=== PATIENT | female | born 1990 | race Caucasian/White ===

== ENCOUNTER 2019-04-13 00:59 | Observation (INO) ==
[2019-04-13] MEDS ORDERED: G.I. COCKTAIL PO ONE (01:32)
[2019-04-13 02:00] LABS: URINE SOURCE CLEAN CATCH
[2019-04-13 02:08] LABS: BASO# 0.01 X1000 (0.0-0.2); BASO% 0.1 % (0.0-0.8); EOS# 0.16 X1000 (0.0-0.7); EOS% 2.1 % (0.0-10.0); HEMATOCRIT 39.8 % (37.0-47.0); HEMOGLOBIN 12.4 g/dL (12.0-16.0); IMM GRAN# 0.02 X1000 (0.0-0.04); IMM GRAN% 0.3 % (0.0-0.5); LYMPH# 2.74 X1000 (1.2-3.4); LYMPH% 35.4 % (20.5-51.1); MCH 25.4 PG (27-31); MCHC 31.2 g/dL (33-37); MCV 81.6 FL (81-99); MONO# 0.82 X1000 (0.11-0.59); MONO% 10.6 % (1.7-9.3); MPV 10.7 FL (7.4-10.4); NEUT% 51.5 % (42.2-75.2); PLT 321 X1000 (130-400); RBC 4.88 XMIL (4.2-5.4); RDW 14.8 % (11.5-14.5); WBC 7.75 X1000 (4.8-10.8)
[2019-04-13 02:14] LABS: BILIRUBIN URINE NEGATIVE (NEGATIVE); BLOOD URINE NEGATIVE (NEGATIVE); COLOR YELLOW; GLUCOSE URINE NEGATIVE (NEGATIVE); KETONE URINE NEGATIVE (NEGATIVE); LEUKOCYTES URINE NEGATIVE (NEGATIVE); NITRITE URINE NEGATIVE (NEGATIVE); PROTEIN URINE TRACE mg/dL (NEGATIVE); SP GRAVITY URINE 1.032; TURBIDITY URINE CLEAR (CLEAR); UROBILINOGEN URINE NORMAL (NORMAL)
[2019-04-13 02:15] LABS: UR EPITHELIAL CELLS <10 /HPF (<10); URINE BACTERIA 1+ /HPF; URINE RBC <10 /HPF (<10); URINE WBC <10 /HPF (<10)
[2019-04-13 02:31] LABS: AGAP 12; ALBUMIN 4.7 g/dL (3.5-5.0); ALKALINE PHOSPHATASE 95 U/L (32-104); AMYLASE 54 U/L (20-200); BUN 16 mg/dL (8-22); CALCIUM 8.7 mg/dL (8.8-10.2); CHLORIDE 103 mmol/L (98-107); COSMO 280; CREATININE 0.8 mg/dL (0.5-0.9); ESTIMATED GFR > 60; GLUCOSE 117 mg/dL (70-104); GOT 19 U/L (10-30); GPT 31 U/L (10-36); LIPASE 30 U/L (13-60); POTASSIUM 3.6 mmol/L (3.5-5.1); SODIUM 139 mmol/L (136-145); TCO2 24 mmol/L (25-35); TOTAL PROTEIN 7.9 g/dL (6.3-8.3)
--- NOTE | 2019-04-13 03:59 | PROVIDER DOCUMENTATION ---
This chart was entered by Giselle Restrepo Scribe, acting as scribe for Stuart Chandra MD. HPI-Abdominal Pain/GI Problem - General Chief Complaint: Abdominal Pain Stated Complaint: ABD PAIN Time Seen by Provider: 04/13/19 01:24 Source: patient Allergies/Adverse Reactions: Patient Allergies Allergy/AdvReac Type Severity Reaction Status Date / Time No Known Allergies Allergy Verified 04/13/19 01:12 Home Medications: Home Medication List Medication Instructions Recorded Confirmed Last Taken Type NK [No Home Medications] 04/13/19 04/13/19 Unknown History - History of Present Illness-ABD Nature of Presenting Problems: Pt is a 28 yowf presenting to the ED stating she has a dull pain in her abdomen straight thru to her back. Pt states that pain started 2 days ago, occurs only at night, heat does not relieve and GasEx does not resolve the pain. Pt has not had v/d but pain causes nausea. Pt appeared distressed about being in ED and stated she "hates hospitals". Pt is nontoxic in appearance. Abdominal Pain Onset Location: reports: epigastric Pain Radiation: reports: back (straight thru from abdomen) Quality of Pain: reports: dull Severity in ED: reports: mild Onset/Duration: reports: abrupt, 2 days ago Timing: reports: still present, constant Activities at Onset: reports: light activity Modifying Factors: worse with: cold/heat therapy, other medication (GasEx) Associated Symptoms: reports: back/neck pain (straight thru from abdomen), nausea. denies: diarrhea, dizziness, vomiting Review of Systems - Adult - REVIEW OF SYSTEMS - ADULT Constitutional: denies: chills, fever Eyes: reports: no symptoms reported Ears, Nose, Mouth & Throat: reports: no symptoms reported Cardiovascular: denies: chest pain, syncope Respiratory: reports: no symptoms reported Gastrointestinal: reports: abdominal pain, nausea. denies: diarrhea, vomiting Genitourinary: reports: no symptoms reported Musculoskeletal: reports: back pain (comes straight thru from abdomen) Integumentary: reports: no symptoms reported Neurological: reports: no symptoms reported Psychiatric: reports: no symptoms reported Endocrine: reports: no symptoms reported Hematologic/Lymphatic: reports: no symptoms reported Allergic/Immunologic: reports: no symptoms reported All Other Systems: Reviewed and Negative Past History - Adult - PAST MEDICAL HISTORY-ADULT Review of Records: reports: Old Records Reviewed, Nursing Assessment Review, Medications Reviewed, Social history reviewed & non-contributory. Major Childhood Illnesses: reports: denies history Cardiovascular: reports: denies history Respiratory: reports: denies history Gastrointestinal: reports: denies history Genitourinary: reports: denies history Musculoskeletal: reports: denies history Neurological: reports: denies history Endocrine/Immune: reports: thyroid disorder Other Conditions: reports: denies history - PRIOR SURGERIES/PROCEDURES Surgical/Procedure History: reports: - IMMUNIZATION STATUS Childhood Immunizations: See Nurse Assessment Flu Vaccine: See Nurse Assessment - FAMILY HISTORY Family History: reviewed, not pertinent - SOCIAL HISTORY Living Situation: family Physical Exam-General - PHYSICAL EXAM-ADULT Initial Vital Signs Reviewed: Yes (HR 120) - CONSTITUTIONAL General Appearance: appears well, alert, mild distress - EYES Eyes: PERRL/EOMI - HEAD, EARS, NOSE, MOUTH & THROAT HENMT: moist mucous membranes, normal ENT inspection - NECK Neck: non-tender, full range of motion, supple, normal inspection - RESPIRATORY Respiratory: chest non-tender, lungs clear, normal breath sounds - CARDIOVASCULAR Cardiovascular: normal peripheral pulses, tachycardia - GASTROINTESTINAL (ABDOMEN) Abdominal Exam: normal bowel sounds, soft, tenderness - MUSCULOSKELETAL Back Exam: normal inspection, no CVA tenderness Extremity: normal range of motion, non-tender, normal gait, normal inspection - SKIN Integumentary: normal color, normal turgor, warm/dry - PSYCHIATRIC Psych/Mental Status: normal mood/affect, normal thought content, normal thought process, oriented x 3 Progress - PLAN OF CARE/RESULTS Progress/Plan/Lab Results: Vital Signs - 8 hr 04/13/19 01:03 Temperature 98.6 F Pulse Rate 120 H Respiratory Rate 20 Blood Pressure 155/104 O2 Sat by Pulse Oximetry 96 Orders Category Date Time Status ED: Urine Bedside ORDERED Care 04/13/19 01:22 Active NPO Diet 04/13/19 01:22 Active AMYLASE [CHEM] Stat Lab 04/13/19 01:32 Uncollected CBC WITH DIFF [HEME] Stat Lab 04/13/19 01:22 Uncollected COMPREHENSIVE METABOLIC PANEL [CHEM] Stat Lab 04/13/19 01:22 Uncollected LIPASE [CHEM] Stat Lab 04/13/19 01:22 Uncollected UA [URINALYSIS W/POSS RFLX CULT] [URINALYSIS] Stat Lab 04/13/19 01:22 Uncollected Lido/Ferraro Alk/Al&mg Hydrox [G.i. 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) - CT/MRI 1 CT Study: Abdomen, Pelvis Impression: See EMR Report - CONSULTS/PCP/HOSPITALIST Notification #1 *Consult/PCP/Hospitalist*: Figh Time Discussed: 03:58 Consult Disposition: Admit Departure - Departure Date of Disposition Decision: 04/13/19 Time of Disposition Decision: 03:58 DIAGNOSIS: Acute cholecystitis Disposition: ADMITTED INPATIENT 09 Certified Medical Emergency: Urgent Condition: Good Referrals and Follow-Ups: Delphine Hernandez MD [Primary Care Provider] - - Critical Care Note This patient required my direct & personal management of CC.: No Attestation - Physician/ MARIAM Attestation Patient care was provided by Advanced Practice Provider:: No The physician spent face to face time with patient:: Yes Advanced Practice Provider documentation review:: Supervising physician onsite and consulted in the evaluation and care of this patient. The physician did have a face to face encounter with the patient. This chart was documented by the indicated scribe, (Giselle Restrepo, Raj) and accurately reflects the services I performed and decisions made by me, Stuart Chandra MD, as attested by the provider's signature.
[2019-04-13] MEDS ORDERED: MORPHINE IV PRN (04:00)
[2019-04-13] MEDS ORDERED: ZOFRAN IV PRN (04:00)
[2019-04-13] MEDS ORDERED: NS 1,000 ML IV ONE (04:00)
[2019-04-13] MEDS ORDERED: ZOSYN 3.375 GM in NS 50 ML IV ONE (04:02)
--- NOTE | 2019-04-13 08:00 | Diag Imaging Result Doc PS360 ---
EXAM: CT ABD/PELVIS W/IV CONT ONLY INDICATION: epigastric pain/tenderness TECHNIQUE: This exam was performed using automated exposure control, adjustment of mA or kV according to patient size, and/or use of iterative reconstruction technique. COMPARISON: None. FINDINGS: There are a couple of calcified granulomata at the right lung base. There is another miniscule 4 mm noncalcified pleural-based nodule in the right lower lobe that statistically very likely represents a noncalcified granuloma. There are multiple calcified stones in the gallbladder lumen. The gallbladder is distended and exhibits wall thickening and pericholecystic fluid. This is suspicious for cholecystitis. There is no biliary dilatation. There is suggestion of very mild hepatic steatosis. The spleen, pancreas, adrenal glands, kidneys, and urinary bladder are grossly unremarkable. The reproductive tract is unremarkable as imaged. The appendix is normal. There is no evidence of bowel wall thickening or bowel obstruction. The remainder of the GI tract is unremarkable. There is a small umbilical hernia that contains only fat. IMPRESSION: 1.Cholelithiasis and evidence of cholecystitis as described. 2.Other incidental/nonacute findings detailed above. Electronically signed by Ankush Michaels 04/13/2019 7:57 AM
--- NOTE | 2019-04-13 09:09 | HISTORY AND PHYSICAL ---
ADMITTING DIAGNOSIS: Cholecystitis. HISTORY OF PRESENT ILLNESS: A 28-year-old female presented to the emergency department with dull epigastric pain through to her back that started 2 days prior to presentation. She has tried multiple [id number] stuff and has not improved. She has never had pain like this before. She does have a strong family history of gallbladder disease. She was seen in the emergency department, and found to have cholecystitis on CT scan. She is still complaining of dull epigastric pain. PAST MEDICAL HISTORY: History of thyroid disease. PAST SURGICAL HISTORY: section. SOCIAL HISTORY: Nonsmoker. ALLERGIES: None. HOME MEDICATIONS: None. FAMILY HISTORY: Reviewed with the patient and positive for gallbladder disease. REVIEW OF SYSTEMS: A full 10-point review of systems was obtained and negative, except as specified in the HPI. PHYSICAL EXAMINATION: VITAL SIGNS: The patient is currently afebrile. She does have low-grade tachycardia in the 110s. Blood pressure is stable. GENERAL: No acute distress, but appears a somewhat ill, female, looks stated age. HEENT: Normocephalic, atraumatic. Pupils equal, round, reactive to light. Mucous membranes moist. Oropharynx benign. NECK: Supple. Trachea midline. CARDIOVASCULAR: Regular rate and rhythm. LUNGS: Grossly clear. ABDOMEN: Soft. Tender to palpation in the right upper quadrant, epigastric. No peritoneal signs. EXTREMITIES: Moves all extremities. NEUROLOGIC: Grossly intact. SKIN: No signs of jaundice. VASCULAR: All extremities perfused. IMAGING AND LABORATORY DATA: White blood cell count is normal. There is no left shift. Hematocrit is normal. Platelet count is normal. AST, ALT, alkaline phosphatase, and bilirubin are all normal. CT scan independently reviewed, and radiology report reviewed. It looks like she potentially has cholecystitis. ASSESSMENT AND PLAN: A 28-year-old female with cholecystitis. Cholecystitis. At this time, discussed with the patient, the risks, benefits, and alternatives of the procedure, risks including but not limited to bleeding, infection, risk of anesthesia, risk of common bile duct injury, risk of bile leak all discussed. She wants to proceed with the procedure. Also discussed that given the scheduling, may have to have a partner do the procedure, which she is okay with. Will proceed with intervention today. She will be admitted and started on antibiotics. cc: Erwin Butterfield MD
[2019-04-13] MEDS ORDERED: ZOSYN 3.375 GM in NS 50 ML IV SCH (10:00)
[2019-04-13] MEDS ORDERED: LR 1,000 ML ONE (12:58)
[2019-04-13] MEDS ORDERED: MARCAINE 0.25% PF/EPI 1:200,000 ONE (12:58)
[2019-04-13] MEDS ORDERED: SODIUM CHLORIDE 0.9% ONE (12:58)
[2019-04-13] MEDS ORDERED: VERSED ONE (13:16)
[2019-04-13] MEDS: DILAUDID ONE ×2 (14:51→14:54)
[2019-04-13] MEDS ORDERED: NORCO-10 PO PRN (15:48)
[2019-04-13 17:27] VITALS: BP 130/80
[2019-04-13] MEDS ORDERED: PERIDEX MT SCH (21:00)
--- NOTE | 2019-04-13 21:20 | OPERATIVE NOTE ---
PROCEDURE DATE: 04/13/2019 PREOPERATIVE DIAGNOSIS: Cholecystitis. POSTOPERATIVE DIAGNOSIS: Cholecystitis. PROCEDURE: Laparoscopic cholecystectomy. SURGEON: Erwin Butterfield MD. SENIOR NET C DEVELOPER: None. ANESTHESIA: General endotracheal. INTRAOPERATIVE FINDINGS: Cholecystitis. COMPLICATIONS: None at time of dictation. ESTIMATED BLOOD LOSS: 10 mL. SPECIMENS REMOVED: Gallbladder. BRIEF HISTORY: A 28-year-old female presenting with classic symptoms of cholecystitis. It was felt that she would benefit from a cholecystectomy. The risks, benefits, and alternatives were discussed. Risks including, but not limited to bleeding, infection, risk of anesthesia, risk of common bile duct injury, bile leak, and injury to other organs. All questions answered. DESCRIPTION OF PROCEDURE: After informed consent was obtained, the patient was brought to the operative theatre, transferred to the operating table in the placed in supine position. General endotracheal anesthesia was then performed without complication. A formal time-out was then performed confirming patient, date, procedure. All in agreement. At that time, attention was given to the abdomen. An infraumbilical incision was made through which using Optiview technique we inserted a 12 mm trocar, connected it to insufflation. Pneumoperitoneum was achieved. Under direct visualization, we placed 3 more trocars, all 5 mm, 1 subxiphoid and 2 in the right upper quadrant. Using these, the gallbladder was identified. It was edematous consistent with cholecystitis. We retracted it cephalad. We dissected out the cystic duct and cystic artery to achieve the critical view of safety. We doubly clipped and ligated the cystic duct and cystic artery and then dissected the gallbladder off the gallbladder fossa. We brought it out through the infraumbilical incision in an EndoCatch, which we had to expand the fascial defects slightly to accommodate the size of the gallbladder. We then irrigated out the abdomen until the suction fluid was clear. We closed the infraumbilical incision with 0 Vicryl on a Jeff-Meyer device. All trocars were removed and insufflation was disconnected. Pneumoperitoneum was released. All skin incisions closed with 4-0 Monocryl. The patient tolerated the procedure well. She will be discharged home. cc: Erwin Butterfield MD
== END 2019-04-13 18:07 | disposition home or self-care (01) ==
LOC: P.ED 00:59 → 4N 00:59
PROVIDERS: ADMIT Surgery; ATTEND Surgery